=== PATIENT | female | born 1980 | race Caucasian/White ===

== ENCOUNTER 2017-01-10 16:18 | Emergency (ER) | payer OTHER ==
[~2017-01-10] VITALS: Ht 167.6 cm; Wt 69.4 kg
[2017-01-10] MEDS ORDERED: KETOROLAC 30 MG/ML VIAL. IV ONE (17:15)
[2017-01-10] MEDS ORDERED: ASPIRIN 81 MG TAB.CHEW PO ONE (17:15)
[2017-01-10] MEDS ORDERED: LIDO:MAALOX 1:1 20 ML SINGLE DOSE PO ONE (17:15)
--- NOTE | 2017-01-10 17:24 | EKG ---
[address] [address] Test Date: 2017-01-10 Test Time: 16:31:02 Pat Name: MC JAMISON Department: Room: Gender: F Injection Molding Technician: : 1980 Requested By: ERIC GREEN Order Number: [id number] Reading MD: Measurements Intervals [place] Rate: 80 P: 60 VT: 138 QRS: 86 QRSD: 94 T: 34 QT: 366 QTc: 426 Interpretive Statements SINUS RHYTHM NO SPECIFIC ECG ABNORMALITIES RI6.01 No previous ECG available for comparison
--- NOTE | 2017-01-10 17:35 | RAD ---
Portable AP upright view CXR: Clinical indications: Epigastric pain and chest pain for several hours.. Findings: No acute lung infiltrate or pleural effusion or pulmonary edema or lung mass or pneumothorax is seen. The heart size, pulmonary vasculature, mediastinum and both paul are unremarkable. Impression: No acute radiographic abnormality is seen.
[2017-01-10 17:51] LABS: BASO % 1 % (0-3); EOS # 0.2 x10^3/uL (0.0-0.7); EOS % 6 % (0-3); HEMATOCRIT 41.1 % (36.0-47.0); HEMOGLOBIN 13.9 g/dL (12.0-15.5); LYMPH # 1.4 x10^3/uL (1.0-4.8); LYMPH % 36 % (24-48); MEAN CORPUSCULAR HEMOGLOBIN 29 pg (25-35); MEAN CORPUSCULAR HGB CONC 34 g/dL (31-37); MEAN CORPUSCULAR VOLUME 87 fL (79-100); MONO # 0.4 x10^3/uL (0.0-1.1); MONO % 10 % (0-9); NEUT # 1.9 x10^3uL (1.8-7.7); NEUT % 48 % (31-73); PLATELET COUNT 232 x10^3/uL (140-400); RED BLOOD COUNT 4.75 x10^6/uL (3.50-5.40); RED CELL DISTRIBUTION WIDTH 13.9 % (11.5-14.5)
[2017-01-10 18:04] LABS: ALBUMIN 3.9 g/dL (3.4-5.0); ALBUMIN/GLOBULIN RATIO 1.2 (1.0-1.7); CALCIUM 8.8 mg/dL (8.5-10.1); CREATININE 0.7 mg/dL (0.6-1.0); GFR 94.7; POTASSIUM 3.5 mmol/L (3.5-5.1); TOTAL BILIRUBIN 0.3 mg/dL (0.2-1.0); TOTAL PROTEIN 7.2 g/dL (6.4-8.2)
[2017-01-10 18:48] VITALS: BP 102/78
[2017-01-10] MEDS ORDERED: HYDR-971 PO (19:02)
[2017-01-10] MEDS ORDERED: PRED20TA PO (19:02)
[2017-01-10] MEDS ORDERED: ONDANSETRON PF 4 MG/2 ML VIAL. ONE (19:03)
--- NOTE | 2017-01-10 19:06 | PHYS DOC ---
General Chief Complaint: CHEST PAIN Stated Complaint: CHEST PAIN Time Seen by MD: 17:02 Source: patient Exam Limitations: no limitations Problems: History of Present Illness Initial Comments Patient is a 36-year-old female who comes to the ED complaining of anterior chest wall discomfort. Patient states that she first noticed this at 10 PM last night, she complains of anterior chest wall aching with sharp stabbing the exacerbations when taking deep breaths, directly palpating her anterior chest wall, coughing, and other specific postural movements. Symptoms have remained stable since onset no worsening today, she denies associated nausea or diaphoresis dyspnea or arm or neck symptoms. Patient has rheumatoid arthritis she denies any symptoms of rheumatoid exacerbation elsewhere. She denies any strenuous activity or new workouts no dyspnea on exertion and coughing or wheezing, no fever chills sweats or body aches. Her current medications are not helping she typically follows at [place]. ED vitals: 98, 75, 16, 113/76, 100% room air Timing/Duration: intermittent (since 10 PM last night) Severity: moderate Modifying Factors: worse with movement, improves with rest Associated Symptoms: chest pain Allergies: Coded Allergies: No Known Drug Allergies (Unverified , 01/10/17) Past Medical History Medical History: other (rheumatoid arthritis) Surgical History: no surgical history Social History Smoker: non-smoker Alcohol: none Drugs: none Review of Systems Constitutional: denies chills, denies diaphoresis, denies fever, denies malaise , denies weakness Respiratory: denies cough, denies shortness of breath, denies wheezing Cardiovascular: see HPI, denies edema, denies palpitations, denies syncope Gastrointestinal: denies abdominal pain, denies diarrhea, denies nausea, denies vomiting Genitourinary: denies dysuria, denies frequency, denies hematuria Musculoskeletal: see HPI, denies back pain, denies neck pain Psychiatric/Neurological: denies headache, denies numbness, denies paresthesia , denies weakness Hematologic/Lymphatic: denies blood clots, denies easy bleeding, denies easy bruising Physical Exam General Appearance: WD/WN, no apparent distress Eyes: bilateral eye normal inspection, bilateral eye PERRL, bilateral eye EOMI Ear, Nose, Throat: hearing grossly normal, normal ENT inspection, normal pharynx Neck: non-tender, supple Respiratory: normal breath sounds, no respiratory distress, other (palpation of the anterior chest wall reproduces chief complaint) Cardiovascular: normal peripheral pulses, regular rate, rhythm Gastrointestinal: normal bowel sounds, non tender, soft Back: no CVA tenderness, no vertebral tenderness Extremities: normal range of motion, non-tender, normal inspection, no pedal edema, no calf tenderness, pelvis stable Neurologic/Psychiatric: nurse quality II-XII nml as tested, no motor/sensory deficits, alert, normal mood/affect, oriented x 3 Skin: normal color, warm/dry Orders, Labs, Meds EKG: Normal sinus rhythm 80 bpm, no acute ischemic changes no STEMI. Interpreted by Dr. Green. PATIENT: MC JAMISON ACCOUNT: [id number] : 1980 LOCATION: ER AGE: 36 SEX: F EXAM STATUS: REG ER ORD. PHYSICIAN: ERIC GREEN DO REASON: cp PROCEDURE: PORTABLE CHEST 1V Portable AP upright view CXR: Clinical indications: Epigastric pain and chest pain for several hours.. Findings: No acute lung infiltrate or pleural effusion or pulmonary edema or lung mass or pneumothorax is seen. The heart size, pulmonary vasculature, mediastinum and both paul are unremarkable. Impression: No acute radiographic abnormality is seen. DICTATED AND SIGNED BY: JORY HERNANDEZ MD DATE: 01/10/171731 CC: JAMARI LINDSAY; ERIC GREEN DO ~ Labs unremarkable Toradol and GI cocktail without effect on patient's symptoms. Given the duration of symptoms acute coronary syndrome has been effectively ruled out. No diffuse ST elevation and no physical exam findings to suggest further evaluation for pericarditis. Symptoms appear to be musculoskeletal in origin may or may not be related to patient's chronic rheumatoid disease. I discussed treatment options, patient is requesting pain medications. In addition she is requesting a work note. I discussed signs and symptoms to monitor for as well as indications for urgent return to the department. I discussed continuing current medications, [id number] medications as well as prescription medications. The patient and her spouse is questions were answered to their satisfaction they expressed agreement and understanding with the treatment plan and agree to follow-up at [place] tomorrow for recheck and further testing/outpatient workup as necessary. No emergent condition requiring further ED evaluation or inpatient treatment is evident from today's visit. Departure Time of Disposition: 19:04 Disposition: 01 HOME, SELF-CARE Diagnosis: chest wall pain, history of rheumatoid arthritis Condition: STABLE Patient Instructions: Chest Wall Pain, [id number] Additional Instructions: Off work until cleared by your doctor, note given. Continue current medications. Prescriptions: Prednisone, [place] 5 mg quantity 10 Take medications with food to avoid nausea and vomiting. Follow-up at [place] tomorrow for recheck and further outpatient workup as indicated. Return to the ED with new or changing symptoms. ERIC GREEN DO Jan 10, 2017 19:05
[2017-01-10] MEDS ORDERED: ONDANSETRON PF 4 MG/2 ML VIAL. IV ONE (19:30)
== END 2017-01-10 19:13 | disposition home or self-care (01) ==
LOC: ER 16:18
DX: R07.89 Other chest pain (principal); M06.9 Rheumatoid arthritis, unspecified
CPT/HCPCS: 36415; 71010; 80053; 81025; 82550; 83690; 84484; 85025; 85379; 93005; 96374; 96375; 99285; J1885; J2405

== ENCOUNTER 2019-11-04 11:52 | Emergency (ER) | payer OTHER ==
[~2019-11-04] VITALS: Ht 167.6 cm; Wt 60.9 kg
[~2019-11-04 11:52] MED LIST: HYDR-3165 PO; PRED20TA PO
[2019-11-04 12:10] VITALS: BP 124/79
[2019-11-04] MEDS ORDERED: SULF1TAB24 PO (12:11)
--- NOTE | 2019-11-04 12:18 | PHYS DOC ---
Past History Past Medical History: Arthritis Past Surgical History: No Surgical History Alcohol Use: None Drug Use: None Adult General Chief Complaint Chief Complaint: LOWER EXT PAIN HPI HPI Patient is a 39-year-old female who presents with left foot problem. Patient reports first noticing abscess on left foot 4 days ago. Nothing known makes better, ambulation and palpation make worse. Patient has history of skin abscesses in the past, no MRSA, but reports presenting symptoms similar to prior episodes. Patient takes Celebrex daily for rheumatoid arthritis, reports this is provided mild relief at best for symptoms. She has been afebrile but concerned given that she is on numerous immunosuppressive medication such as Humira and Plaquenil. Patient called her primary care office but cannot be seen until later this week prompting her to visit our ER today for evaluation. Patient denies any fever, shortness of breath, chest pain, changes in motor or sensory function, no focal deficits reported. She denies any known inciting event, inoculation, or trauma Review of Systems Review of Systems Fourteen body systems of review of systems have been reviewed. See HPI for pertinent positives and negative responses, other macario all other systems are negative, non-pertinent or non-contributory Allergies Allergies Allergies Coded Allergies Type Severity Reaction Last Updated Verified No Known Drug Allergies 01/10/17 No Physical Exam Physical Exam Constitutional: Well developed, well nourished, no acute distress, non-toxic appearance. HENT: Normocephalic, atraumatic, bilateral external ears normal, oropharynx moist, no oral exudates, nose normal. Eyes: PERRLA, EOMI, conjunctiva normal, no discharge. Neck: Normal range of motion, no tenderness, supple, no stridor. Cardiovascular: Heart rate regular, sinus rhythm, no murmurs rubs or gallops Lungs & Thorax: Bilateral breath sounds clear to auscultation Abdomen: Bowel sounds normal, soft, no tenderness, no masses, no pulsatile masses. Nonsurgical abdomen, no peritoneal signs Skin: Warm, dry, no rash. Medial portion of the left arch of foot has noticeable erythema with slightly erythematous area roughly 3.5 cm diameter with small up focal pustular head. Exquisitely tender to palpation. No expressible exudate, no fluctuant mass appreciated, no crepitus, no streaking Back: No tenderness, no CVA tenderness. Extremities: No tenderness, no cyanosis, no clubbing, ROM intact, no edema. Neurologic: Alert and oriented X 3, grossly normal motor & sensory function, no focal deficits noted. Psychologic: Affect normal, judgement normal, mood normal. EKG EKG [] Radiology/Procedures Radiology/Procedures [] Course & Med Decision Making Course & Med Decision Making Ambulatory patient seen and evaluated on immediate ER arrival ABCs unremarkable Comprehensive history and physical exam obtained Discussed grossly benign findings without any indication for further diagnostic work-up. Despite this, patient who although is afebrile, is high risk for worsened infection given immunocompromised state Discussed need for aggressive medical management early given clinical presentation, discussed role of antibiotics and continued supportive care using warm soaks etc. Decision made to discharge home with p.o. Bactrim prescription with close PCP follow-up in upcoming 1 to 10 days time Strict return precautions discussed with good understanding by patient, all questions and concerns addressed prior to ER departure home in stable condition Dragbeena Disclaimer Ayanna Disclaimer This electronic medical record was generated, in whole or in part, using a voice recognition dictation system. Departure Departure: Impression: Primary Impression: Abscess of left foot Disposition: 01 HOME/RESIDENCE PRIOR TO ADM Condition: STABLE Referrals: JAMARI LINDSAY (PCP) Patient Instructions: Abscess, Sulfamethoxazole; Trimethoprim, SMX-TMP tablets Additional Instructions: You were evaluated in the Emergency Department for an abscess. You should soak the area in warm water for 20-30 minutes 3-4 times daily. Contact your doctor when the abscess comes to a head (looks like it is almost ready to pop open) and needs to be drained. Please keep the areas surrounding the abscess clean and dry. Take the antibiotics prescribed to you in full as directed. As discussed prior to ER departure, please call your PCP first thing tomorrow to have visit in upcoming 1 to 10 days time for follow-up Return to the Emergency Department if you experience worsening pain, persistent fevers greater than 100.4, an increase in area of redness, increased tenderness/ warmth around the abscess, foul smelling discharge from the abscess It was a pleasure to take care of you and I wish you a speedy recovery! Scripts Sulfamethoxazole/Trimethoprim (BACTRIM DS TABLET) 1 Each Tablet 1 TAB PO BID for Abscess for 7 Days, #14 TAB 0 Refills Prov: LILLIE MOFFETT DO 11/04/19 Justification of Admission: Justification of Admission: Justification of Admission Dx: N/A LILLIE MOFFETT DO Nov 04, 2019 12:18
== END 2019-11-04 12:32 | disposition home or self-care (01) ==
LOC: ER 11:52
DX: L02.612 Cutaneous abscess of left foot (principal); M06.9 Rheumatoid arthritis, unspecified; Z79.899 Other long term (current) drug therapy
CPT/HCPCS: 99283

== ENCOUNTER 2020-10-27 12:10 | Emergency (ER) | payer OTHER ==
[~2020-10-27] VITALS: Ht 170.2 cm; Wt 61.9 kg
[~2020-10-27 12:10] MED LIST changes: +SULF1TAB24 PO
--- NOTE | 2020-10-27 12:25 | PHYS DOC ---
Past History Past Medical History: Arthritis, Other Additional Past Medical Histor: RA, eczema Past Surgical History: Hysterectomy Alcohol Use: None Drug Use: None Adult General Chief Complaint Chief Complaint: CHEST PAIN HPI HPI Patient is a 40-year-old female presenting for chest pain. Reports onset was ye sterday evening while lifting boxes. Nothing known makes better, physical exertion and inhalation make worse. Pain described as deep and focal over the left breast with radiation to behind her shoulder blades. She has never felt this type of pain before. Symptoms have been constant since onset. She has history of rheumatoid arthritis and on immunosuppressant drugs. No recent sick contacts, fever or URI symptoms, she has received x2 Moderna vaccines. No tobacco, alcohol or drug use. No significant past medical history of cardiac issues. Review of Systems Review of Systems Fourteen body systems of review of systems have been reviewed. See HPI for pertinent positives and negative responses, other macario all other systems are negative, non-pertinent or non-contributory Allergies Allergies Allergies Coded Allergies Type Severity Reaction Last Updated Verified No Known Drug Allergies 01/10/17 No Physical Exam Physical Exam Constitutional: Well developed, well nourished, no acute distress, non-toxic appearance. HENT: Normocephalic, atraumatic, bilateral external ears normal, oropharynx moist, no oral exudates, nose normal. Eyes: PERRLA, EOMI, conjunctiva normal, no discharge. Neck: Normal range of motion, no tenderness, supple, no stridor. Cardiovascular: Heart rate regular, sinus rhythm, no murmurs rubs or gallops Lungs & Thorax: No respiratory distress accessory muscle use or increased work of breathing. Patient is speaking in several word sentences only due to pain with inspiration. Clear to auscultation bilaterally Abdomen: Bowel sounds normal, soft, no tenderness, no masses, no pulsatile masses. Nonsurgical abdomen, no peritoneal signs Skin: Warm, dry, no erythema, no rash. Has a minute bite present on anterior abdomen from tick several weeks ago, no erythema migrans or bull's-eye sign, states tick was not engorged when it ripped off, estimates it was on her for less than a couple hours Back: No tenderness, no CVA tenderness. Extremities: No tenderness, no cyanosis, no clubbing, ROM intact, no edema. Neurologic: Alert and oriented X 3, grossly normal motor & sensory function, no focal deficits noted. Psychologic: Anxious affect and mood Current Patient Data Vital Signs Vital Signs Date Time Temp Pulse Resp B/P (MAP) Pulse Ox O2 Delivery O2 Flow Rate FiO2 10/27/20 12:10 97.8 86 18 127/85 98 Room Air Vital Signs Date Time Temp Pulse Resp B/P (MAP) Pulse Ox O2 Delivery O2 Flow Rate FiO2 10/27/20 12:10 97.8 86 18 127/85 98 Room Air Lab Results Laboratory Tests Test 10/27/20 12:33 White Blood Count 3.5 x10^3/uL Red Blood Count 4.89 x10^6/uL Hemoglobin 15.2 g/dL Hematocrit 44.8 % Mean Corpuscular Volume 92 fL Mean Corpuscular Hemoglobin 31 pg Mean Corpuscular Hemoglobin Concent 34 g/dL Red Cell Distribution Width 12.9 % Platelet Count 224 x10^3/uL Neutrophils (%) (Auto) 41 % Lymphocytes (%) (Auto) 34 % Monocytes (%) (Auto) 13 % Eosinophils (%) (Auto) 12 % Basophils (%) (Auto) 1 % Neutrophils # (Auto) 1.4 x10^3uL Lymphocytes # (Auto) 1.2 x10^3/uL Monocytes # (Auto) 0.4 x10^3/uL Eosinophils # (Auto) 0.4 x10^3/uL Basophils # (Auto) 0.0 x10^3/uL Sodium Level 143 mmol/L Potassium Level 3.4 mmol/L Chloride Level 105 mmol/L Carbon Dioxide Level 28 mmol/L Anion Gap 10 Blood Urea Nitrogen 9 mg/dL Creatinine 0.8 mg/dL Estimated GFR (Cockcroft-Gault) 79.4 BUN/Creatinine Ratio 11 Glucose Level 85 mg/dL Calcium Level 9.3 mg/dL Total Bilirubin 0.5 mg/dL Aspartate Amino Transf (AST/SGOT) 20 U/L Alanine Aminotransferase (ALT/SGPT) 26 U/L Alkaline Phosphatase 62 U/L Troponin I Quantitative < 0.017 ng/mL YQ-Csw-T-Type Natriuretic Peptide 26 pg/mL Total Protein 8.0 g/dL Albumin 4.4 g/dL Albumin/Globulin Ratio 1.2 Lipase 133 U/L Serum Test, Qualitative Negative Current Medications Medications (Trade) Dose Ordered Sig/Greer Route PRN Reason Start Time Stop Time Status Last Admin Dose Admin Aspirin (Aspirin Chewable) 324 mg 1X ONCE PO 10/27/20 12:45 10/27/20 12:46 DC 10/27/20 14:00 Iohexol (Omnipaque 350 Mg/ml) 100 ml 1X ONCE IV 10/27/20 13:00 10/27/20 13:01 DC 10/27/20 13:21 Info (Do NOT chart on this entry -- for MONITORING) 1 each PRN DAILY PRN MC SEE COMMENTS 10/27/20 13:00 10/29/20 12:59 EKG EKG EKG ordered and interpreted by myself at 1225 hrs. is sinus rhythm at 99 bpm, unremarkable intervals, no axis deviation, no obvious ischemic findings, no STEMI Radiology/Procedures Radiology/Procedures EXAMINATION: CTA Chest With IV contrast INDICATION:40 years, Female, shortness of breath, midline chest pain right dated into the back. COMPARISON: None. TECHNIQUE: Spiral CTA was obtained from the jugular notch through the posterior costophrenic recess. 3-D MIPS, sagittal and coronal reformats were obtained. Exposure: One or more of the following individualized dose reduction techniques were utilized for this examination: 1. Automated exposure control 2. Adjustment of the mA and/or kV according to patient size 3. Use of iterative reconstruction technique. FINDINGS: LUNGS/PLEURA: Central airways are patent. Bibasilar subsegmental atelectasis. No focal consolidation, pleural effusion or pneumothorax. No suspicious pulmonary nodule.. MEDIASTINUM: No pathologic mediastinal or hilar adenopathy. The thoracic aorta and pulmonary arteries are normal in caliber. No evidence of pulmonary embolism. Aberrant right subclavian artery. The heart is normal in size. No pericardial effusion. No detectable calcified coronary atherosclerosis. The visualized thyroid and the esophagus are unremarkable. AXILLA/SOFT TISSUE: No supraclavicular or axillary adenopathy. Regional soft tissues are within normal limits. UPPER ABDOMEN: The visualized upper abdomen appears unremarkable. BONES: No evidence of acute fractures or aggressive osseous lesions. IMPRESSION: 1. No evidence of pulmonary embolism. 2. No focal consolidation. Electronically signed by: Ronak Small MD (10/27/2020 1:45 PM) [facility] Heart Score C/O Chest Pain: Yes HEART Score for Chest Pain: HEART Score for Chest Pain Response (Comments) Value History Moderately Suspicious 1 ECG Normal 0 Age < 45 0 Risk Factors 1 or 2 Risk Factors 1 Troponin < Normal Limit 0 Total 2 Risk Factors: Risk Factors: DM, Current or recent (<one month) smoker, HTN, HLP, family history of CAD, obesity. Risk Scores: Risk Factors: DM, Current or recent (<one month) smoker, HTN, HLP, family history of CAD, obesity. Course & Med Decision Making Course & Med Decision Making ABCs unremarkable. I disclosed entirety of ER findings and discussed most likely diagnosis of likely noncardiac chest pain, I discussed most likely diagnosis is pectoral/chest wall musculoskeletal strain. Other diagnoses were discussed with patient such as ACS, blood clots etc. but all deemed less likely causes of patient's presentation. Plan of care discussed at length with need for close outpatient follow-up to review today's ER visit stressed. Strict return precautions were also discussed at length with good understanding by patient. Patient voiced understanding and agreement with the plan. Patient knows to come back for repeat evaluation if concerning signs or symptoms present prior to outpatient follow-up. Hemodynamically stable, ambulatory and well-appearing at time of disposition. Dragon Disclaimer Dragon Disclaimer This electronic medical record was generated, in whole or in part, using a voice recognition dictation system. Departure Departure: Impression: Primary Impression: Chest pain, unspecified Disposition: HOME / SELF CARE / HOMELESS Condition: STABLE Referrals: JAMARI LINDSAY (PCP) Patient Instructions: Chest Pain (Nonspecific) Additional Instructions: You were seen for chest pain. Your workup did not show any acute abnormalities today, but does not indicate that you do not have underlying cardiovascular disease or other concerning issues. You do need to follow up with your primary doctor and potentially a superintendent electric power for further evaluation and treatment. Please continue supportive care practices at home such as using prescribed NSAID 3 times daily with food in addition to a heating pad. You should return to the ED if you develop worsening chest pain, shortness of breath, fever, abnormal sweating, leg swelling, or any other new or concerning symptoms. Scripts Ibuprofen (IBUPROFEN) 800 Mg Tablet 1 TAB PO TID for PAIN, #15 TAB 0 Refills Prov: LILLIE MOFFETT DO 10/27/20 LILLIE MOFFETT DO Oct 27, 2020 12:25
--- NOTE | 2020-10-27 12:29 | EKG ---
[address] [address] Test Date: 2020-10-27 Test Time: 12:19:29 Pat Name: MC JAMISON Department: Room: Gender: F Biomedical Equipment Tech: DEMETRIA : 1980 Requested By: LILLIE MOFFETT Order Number: [id number] Reading MD: Measurements Intervals [place] Rate: 99 P: 63 [place]: 124 QRS: 80 QRSD: 84 T: 36 QT: 334 QTc: 434 Interpretive Statements SINUS RHYTHM LEFT ATRIAL ABNORMALITY ABNORMAL ECG RI6.02 No previous ECG available for comparison
[2020-10-27] MEDS ORDERED: ASPIRIN CHEWABLE 81 MG TABLET. PO ONE (12:45)
[2020-10-27 12:49] LABS: BASO % 1 % (0-3); EOS # 0.4 x10^3/uL (0.0-0.7); EOS % 12 % (0-3); HEMATOCRIT 44.8 % (36.0-47.0); HEMOGLOBIN 15.2 g/dL (12.0-15.5); LYMPH # 1.2 x10^3/uL (1.0-4.8); LYMPH % 34 % (24-48); MEAN CORPUSCULAR HEMOGLOBIN 31 pg (25-35); MEAN CORPUSCULAR HGB CONC 34 g/dL (31-37); MEAN CORPUSCULAR VOLUME 92 fL (79-100); MONO # 0.4 x10^3/uL (0.0-1.1); MONO % 13 % (0-9); NEUT # 1.4 x10^3uL (1.8-7.7); NEUT % 41 % (31-73); PLATELET COUNT 224 x10^3/uL (140-400); RED BLOOD COUNT 4.89 x10^6/uL (3.50-5.40); RED CELL DISTRIBUTION WIDTH 12.9 % (11.5-14.5); WHITE BLOOD COUNT 3.5 x10^3/uL (4.0-11.0)
[2020-10-27 12:58] LABS: CALCIUM 9.3 mg/dL (8.5-10.1); CREATININE 0.8 mg/dL (0.6-1.0); GFR 79.4; POTASSIUM 3.4 mmol/L (3.5-5.1)
[2020-10-27] MEDS ORDERED: IOHEXOL 350 MG/ML 100 ML VIAL. IV ONE (13:00)
[2020-10-27] MEDS ORDERED: CONTRAST GIVEN. MC PRN (13:00)
[2020-10-27 13:04] LABS: PREG TEST PT QUAL NEGATIVE (NEG)
[2020-10-27 13:11] LABS: ALBUMIN 4.4 g/dL (3.4-5.0); ALBUMIN/GLOBULIN RATIO 1.2 (1.0-1.7); TOTAL BILIRUBIN 0.5 mg/dL (0.2-1.0)
--- NOTE | 2020-10-27 13:48 | RAD ---
EXAMINATION: CTA Chest With IV contrast INDICATION:40 years, Female, shortness of breath, midline chest pain right dated into the back. COMPARISON: None. TECHNIQUE: Spiral CTA was obtained from the jugular notch through the posterior costophrenic recess. 3-D MIPS, sagittal and coronal reformats were obtained. Exposure: One or more of the following individualized dose reduction techniques were utilized for thi s examination: 1. Automated exposure control 2. Adjustment of the mA and/or kV according to patient size 3. Use of iterative reconstruction technique. FINDINGS: LUNGS/PLEURA: Central airways are patent. Bibasilar subsegmental atelectasis. No focal consolidation, pleural effusion or pneumothorax. No suspicious pulmonary nodule.. MEDIASTINUM: No pathologic mediastinal or hilar adenopathy. The thoracic aorta and pulmonary arteries are normal in caliber. No evidence of pulmonary embolism. Aberrant right subclavian artery. The hear t is normal in size. No pericardial effusion. No detectable calcified coronary atherosclerosis. The v isualized thyroid and the esophagus are unremarkable. AXILLA/SOFT TISSUE: No supraclavicular or axillary adenopathy. Regional soft tissues are within pankaj l limits. UPPER ABDOMEN: The visualized upper abdomen appears unremarkable. BONES: No evidence of acute fractures or aggressive osseous lesions. IMPRESSION: 1. No evidence of pulmonary embolism. 2. No focal consolidation. Electronically signed by: Ronak Small MD (10/27/2020 1:45 PM) [facility]
[2020-10-27] MEDS ORDERED: IBUP800T19 PO (14:38)
[2020-10-27] MEDS ORDERED: KETOROLAC 15 MG/ML VIAL. IVP ONE (14:45)
[2020-10-27 14:55] VITALS: BP 111/77
== END 2020-10-27 14:53 | disposition home or self-care (01) ==
LOC: ER 12:10
DX: R07.89 Other chest pain (principal); Z32.02 Encounter for pregnancy test, result negative; Z90.710 Acquired absence of both cervix and uterus; Z20.822 Contact with and (suspected) exposure to COVID-19
CPT/HCPCS: 36415; 71275; 80053; 83690; 83880; 84484; 84703; 85025; 93005; 96374; 99285; C9803; J1885; Q9967; U0003

== ENCOUNTER 2020-12-10 09:27 | Emergency (ER) | payer OTHER ==
[~2020-12-10] VITALS: Ht 167.6 cm; Wt 63.6 kg
[~2020-12-10 09:27] MED LIST changes: +IBUP800T19 PO
[2020-12-10] MEDS ORDERED: ONDANSETRON PF 4 MG/2 ML VIAL. IVP ONE (10:00)
[2020-12-10] MEDS ORDERED: IV NORMAL SALINE 1,000ML 1,000 ML IV ONE (10:00)
[2020-12-10] MEDS ORDERED: MECLIZINE 12.5 MG TABLET. PO ONE (10:00)
--- NOTE | 2020-12-10 10:01 | PHYS DOC ---
Past History Past Medical History: Arthritis, Other Additional Past Medical Histor: RA Past Surgical History: No Surgical History Alcohol Use: None Drug Use: None General Adult EDM: Chief Complaint: DIZZY/LIGHT HEADED HPI: HPI: 40-year-old female presents with dizziness. The patient started having dizziness last night. She describes it as a feeling of rotation. She did not really get any sleep last night because she feels like she is spinning even with her eyes closed. She has some nausea but no vomiting. She denies any trauma or falls. No new changes to medications. She is on medications for rheumatoid arthritis. It does seem to be made worse with movements of her head. She has not had this in the past. She has had trouble for the last couple months feeling like she has ear congestion. She was treated for sinus infection twice by her PCP without relief. Review of Systems: Review of Systems: Constitutional: Denies fever or chills Eyes: Denies change in visual acuity HENT: Denies nasal congestion or sore throat Respiratory: Denies cough or shortness of breath Cardiovascular: Denies chest pain or edema GI: Nausea. Denies abdominal pain, vomiting, bloody stools or diarrhea : Denies dysuria Musculoskeletal: Denies back pain or joint pain Integument: Denies rash Neurologic: Dizziness. Denies headache, focal weakness or sensory changes Endocrine: Denies polyuria or polydipsia Lymphatic: Denies swollen glands Psychiatric: Denies depression or anxiety Current Medications: Current Meds: Current Medications Medications (Trade) Dose Ordered Sig/Greer Start Time Stop Time Status Last Admin Dose Admin Ondansetron HCl (Zofran) 4 mg 1X ONCE 12/10/20 10:00 12/10/20 10:01 Sodium Chloride 1,000 ml @ 1,000 mls/hr 1X ONCE 12/10/20 10:00 12/10/20 10:59 Allergies: Allergies: Allergies Coded Allergies Type Severity Reaction Last Updated Verified No Known Drug Allergies 10/27/20 No Physical Exam: PE: Constitutional: Well developed, well nourished, no acute distress, non-toxic appearance. [] HENT: Normocephalic, atraumatic, bilateral external ears normal, oropharynx moist, no oral exudates, nose normal. [] Eyes: PERRLA, EOMI, conjunctiva normal, no discharge. Very mild nystagmus with head movement.[] Neck: Normal range of motion, no tenderness, supple, no stridor. [] Cardiovascular: Heart rate regular rhythm, no murmur [] Lungs & Thorax: Bilateral breath sounds clear to auscultation [] Abdomen: Bowel sounds normal, soft, no tenderness, no masses, no pulsatile masses. [] Skin: Warm, dry, no erythema, no rash. [] Back: No tenderness, no CVA tenderness. [] Extremities: No tenderness, no cyanosis, no clubbing, ROM intact, no edema. [] Neurologic: Alert and oriented X 3, normal motor function, normal sensory function, no focal deficits noted. [] Psychologic: Affect normal, judgement normal, mood normal. [] EKG: EKG: [] Radiology/Procedures: Radiology/Procedures: [] Impressions: CT HEAD/BRAIN WO Date: 12/10/2020 11:10 AM Clinical Indication: dizziness Comparison: None. Technique: 5 mm axial tomographic images were obtained of the head without contrast. These were viewed on brain and bone windows. One or more of the following dose reduction techniques were utilized: Automated exposure control (AEC), Adjustment of mA and/or kV according to patient size, Use of iterative reconstruction technique such as ASiR, CT scan done according to ALARA and image gently/image wisely Findings: The brain parenchyma is normal in attenuation. No intra- or extra-axial mass or fluid collection. No acute hemorrhage. The ventricles are normal in size, shape, and morphology. The aguilar-white matter junction is normal. The subarachnoid cisterns are patent. The visualized paranasal sinuses are normal. The visualized portions of the orbits and globes are normal. The mastoid air cells are clear. The banquet bartender topogram shows no lytic lesion or fracture. Impression: No acute intracranial process. Electronically signed by: David Huang MD (12/10/2020 11:19 AM) [id number] DICTATED AND SIGNED BY: DAVID HUANG MD DATE: 12/10/20 1118 CC: BASIA SÁNCHEZ DO; JAMARI LINDSAY ~MTH0 0 Heart Score: C/O Chest Pain: N/A Risk Factors: Risk Factors: DM, Current or recent (<one month) smoker, HTN, HLP, family history of CAD, obesity. Risk Scores: Score 0 - 3: 2.5% MACE over next 6 weeks - Discharge Home Score 4 - 6: 20.3% MACE over next 6 weeks - Admit for Clinical Observation Score 7 - 10: 72.7% MACE over next 6 weeks - Early Invasive Strategies Course & Med Decision Making: Course & Med Decision Making Pertinent Labs and Imaging studies reviewed. (See chart for details) The patient's labs are unremarkable. Her urinalysis is negative for infection. Her urine drug screen is negative. I initially gave the patient Zofran, normal saline and meclizine. This helped with the nausea but she is still feeling dizzy. There is a head CT, of Reglan, and Benadryl. Head CT is negative for acute findings. The patient continues to have feeling of dizziness but she was able to ambulate to the restroom and back on her own. This is likely an inner ear dysfunction that will resolve in time. The patient would prefer to go home and try to manage this from there rather than be admitted to the hospital. I will discharge her with Zofran and meclizine. She is stable for discharge at this time. [] Dragon Disclaimer: Dragon Disclaimer: This electronic medical record was generated, in whole or in part, using a voice recognition dictation system. Departure Departure: Impression: Primary Impression: Dizziness Disposition: HOME / SELF CARE / HOMELESS Condition: STABLE Referrals: JAMARI LINDSAY (PCP) Patient Instructions: Dizziness, Mevd-xs-Aibv Scripts Meclizine Hcl (MECLIZINE HCL) 25 Mg Tablet 1 TAB PO PRN TID PRN for DIZZINESS, #30 TAB Prov: BASIA SÁNCHEZ DO 12/10/20 Ondansetron (ONDANSETRON ODT) 4 Mg Tab.rapdis 1 TAB PO PRN Q6-8HRS PRN for VOMITING, #16 TAB Prov: BASIA SÁNCHEZ DO 12/10/20 BASIA SÁNCHEZ DO Dec 10, 2020 10:01
[2020-12-10 10:36] LABS: BASO % 1 % (0-3); EOS # 0.3 x10^3/uL (0.0-0.7); EOS % 14 % (0-3); HEMOGLOBIN 14.6 g/dL (12.0-15.5); LYMPH # 0.9 x10^3/uL (1.0-4.8); LYMPH % 36 % (24-48); MEAN CORPUSCULAR HEMOGLOBIN 31 pg (25-35); MEAN CORPUSCULAR HGB CONC 34 g/dL (31-37); MEAN CORPUSCULAR VOLUME 91 fL (79-100); MONO # 0.3 x10^3/uL (0.0-1.1); MONO % 11 % (0-9); NEUT % 38 % (31-73); PLATELET COUNT 215 x10^3/uL (140-400); RED BLOOD COUNT 4.73 x10^6/uL (3.50-5.40); WHITE BLOOD COUNT 2.6 x10^3/uL (4.0-11.0)
[2020-12-10 10:41] LABS: CALCIUM 9.1 mg/dL (8.5-10.1); CREATININE 0.6 mg/dL (0.6-1.0); GFR 110.7; POTASSIUM 3.7 mmol/L (3.5-5.1)
[2020-12-10 10:47] LABS: ALBUMIN 3.8 g/dL (3.4-5.0); ALBUMIN/GLOBULIN RATIO 1.1 (1.0-1.7); TOTAL BILIRUBIN 0.5 mg/dL (0.2-1.0); TOTAL PROTEIN 7.2 g/dL (6.4-8.2)
[2020-12-10] MEDS ORDERED: diphenhydrAMINE 50 MG/ML VIAL IVP ONE (11:15)
[2020-12-10] MEDS ORDERED: METOCLOPRAMIDE HCL 10 MG/2 ML VIAL. IVP ONE (11:15)
--- NOTE | 2020-12-10 11:21 | RAD ---
CT HEAD/BRAIN WO Date: 12/10/2020 11:10 AM Clinical Indication: dizziness Comparison: None. Technique: 5 mm axial tomographic images were obtained of the head without contrast. These were view ed on brain and bone windows. One or more of the following dose reduction techniques were utilized: A utomated exposure control (AEC), Adjustment of mA and/or kV according to patient size, Use of iterati ve reconstruction technique such as ASiR, CT scan done according to ALARA and image gently/image macario ly Findings: The brain parenchyma is normal in attenuation. No intra- or extra-axial mass or fluid collection. No acute hemorrhage. The ventricles are normal in size, shape, and morphology. The aguilar-white matter ezra ction is normal. The subarachnoid cisterns are patent. The visualized paranasal sinuses are normal. The visualized portions of the orbits and globes are no rmal. The mastoid air cells are clear. The human services supervisor topogram shows no lytic lesion or fracture. Impression: No acute intracranial process. Electronically signed by: Antoni Huang MD (12/10/2020 11:19 AM) [id number]
[2020-12-10 12:37] LABS: BARBITURATES NEG (NEG); BENZODIAZEPINES NEG (NEG); CANNABINOIDS NEG (NEG); COCAINE NEG (NEG); METHADONE NEG (NEG); OPIATES NEG (NEG); PHENCYCLIDINE NEG (NEG)
[2020-12-10 12:44] LABS: AMPHETAMINE/METHAMPHETAMINE NEG (NEG)
[2020-12-10 13:07] LABS: BACTERIA,URINE 0 /HPF (0-FEW); BILIRUBIN,URINE NEG (NEG); CLARITY,URINE CLEAR; COLOR,URINE YELLOW; GLUCOSE,URINE NEG (NEG); NITRITE,URINE NEG (NEG); RBC,URINE 0 /HPF (0-2); SQUAMOUS EPITHELIAL CELL,UR FEW /LPF; UROBILINOGEN,URINE 0.2 mg/dL (0.2 mg/dL); WBC,URINE OCC /HPF (0-4)
[2020-12-10 13:20] VITALS: BP 110/72
[2020-12-10] MEDS ORDERED: ONDA4TAB12 PO (13:30)
[2020-12-10] MEDS ORDERED: MECL-75 PO (13:30)
== END 2020-12-10 14:00 | disposition home or self-care (01) ==
LOC: ER 09:27
DX: R42 Dizziness and giddiness (principal); R11.0 Nausea; M06.9 Rheumatoid arthritis, unspecified
CPT/HCPCS: 36415; 70450; 80053; 80307; 81001; 85025; 96361; 96374; 96375; J1200; J2405; J2765; 99284-25; 99285-25; J7030

== ENCOUNTER → 2021-02-05 | Outpatient (CLI) | payer OTHER ==
[~2021-02-05] MED LIST changes: +MECL-75 PO; +ONDA4TAB12 PO
== END ==
LOC: LAB 10:31
PROVIDERS: ATTEND Physician Assistant
DX: S30.861A Insect bite (nonvenomous) of abdominal wall, initial encounter (principal); W57.XXXA Bitten or stung by nonvenomous insect and other nonvenomous arthropods, initial encounter
CPT/HCPCS: 36415; 86617; 86618

== ENCOUNTER 2021-03-19 18:54 | Emergency (ER) | payer OTHER ==
[~2021-03-19] VITALS: Ht 167.6 cm; Wt 63.6 kg
[2021-03-19 19:15] VITALS: BP 117/79
--- NOTE | 2021-03-19 19:53 | PHYS DOC ---
Past History Past Medical History: Arthritis, Other Additional Past Medical Histor: RA (FAY CLAROS APRN) Past Surgical History: Hysterectomy (FAY CLAROS APRN) Smoking: Non-smoker Alcohol Use: Occasionally Drug Use: None (FAY CLAROS APRN) General Adult EDM: Chief Complaint: COUGH HPI: HPI: Patient is a 40-year-old female that presents today with body aches, difficulty breathing, and fever and chills, abdominal pain and nausea. Patient states that 2 days ago her daughter tested positive for COVID-19 and she has had direct exposure to her daughter, her symptoms started 24 hours ago and is progressively gotten worse. Patient does have a history of rheumatoid arthritis and is on immunosuppressant medications for that. Patient states she has had a lot of nausea and has vomited at least 5-6 times today she did state that she took Zofran around 5 PM today and that has not helped. Patient states she has had COVID-19 vaccines but has not had the booster. (FAY CLAROS X RAY TECHNOLOGIST) Review of Systems: Review of Systems: Constitutional: Denies fever or chills Eyes: Denies change in visual acuity HENT: Denies nasal congestion or sore throat Respiratory: Denies cough or shortness of breath Cardiovascular: Denies chest pain or edema GI: Denies abdominal pain, nausea, vomiting, bloody stools or diarrhea : Denies dysuria Musculoskeletal: Denies back pain or joint pain Integument: Denies rash Neurologic: Denies headache, focal weakness or sensory changes Endocrine: Denies polyuria or polydipsia Lymphatic: Denies swollen glands Psychiatric: Denies depression or anxiety (FAY CLAROS APRN) Allergies: Allergies: Allergies Coded Allergies Type Severity Reaction Last Updated Verified No Known Drug Allergies 10/27/20 No (FAY CLAROS APRN) Physical Exam: PE: Constitutional: Well developed, well nourished, mild distress, non-toxic appearance. [] HENT: Normocephalic, atraumatic, bilateral external ears normal, oropharynx moist, no oral exudates, nose normal. [] Eyes: PERRLA, EOMI, conjunctiva normal, no discharge. [] Neck: Normal range of motion, no tenderness, supple, no stridor. [] Cardiovascular:Heart rate regular rhythm, no murmur [] Lungs & Thorax: Bilateral breath sounds diminshed Abdomen: Bowel sounds hypoactive, soft, no tenderness, no masses, no pulsatile masses. [] Skin: Warm, dry, no erythema, no rash. [] Back: No tenderness, no CVA tenderness. [] Extremities: No tenderness, no cyanosis, no clubbing, ROM intact, no edema. [] Neurologic: Alert and oriented X 3, normal motor function, normal sensory function, no focal deficits noted. [] Psychologic: Affect normal, judgement normal, mood normal. [] (FAY CLAROS APRN) Current Patient Data: Labs: Laboratory Tests Test 03/19/21 20:40 03/19/21 20:45 Influenza Type A (Rapid) Negative Influenza Type B (Rapid) Positive SARS-CoV-2 Antigen (Rapid) Positive White Blood Count 2.2 x10^3/uL Red Blood Count 4.58 x10^6/uL Hemoglobin 14.1 g/dL Hematocrit 41.9 % Mean Corpuscular Volume 92 fL Mean Corpuscular Hemoglobin 31 pg Mean Corpuscular Hemoglobin Concent 34 g/dL Red Cell Distribution Width 12.8 % Platelet Count 171 x10^3/uL Neutrophils (%) (Auto) 28 % Lymphocytes (%) (Auto) 52 % Monocytes (%) (Auto) 16 % Eosinophils (%) (Auto) 3 % Basophils (%) (Auto) 1 % Neutrophils # (Auto) 0.6 x10^3uL Lymphocytes # (Auto) 1.1 x10^3/uL Monocytes # (Auto) 0.3 x10^3/uL Eosinophils # (Auto) 0.1 x10^3/uL Basophils # (Auto) 0.0 x10^3/uL Platelet Estimate Pending Sodium Level 137 mmol/L Potassium Level 3.3 mmol/L Chloride Level 101 mmol/L Carbon Dioxide Level 23 mmol/L Anion Gap 13 Blood Urea Nitrogen 16 mg/dL Creatinine 0.8 mg/dL Estimated GFR (Cockcroft-Gault) 79.4 BUN/Creatinine Ratio 20 Glucose Level 59 mg/dL Calcium Level 8.2 mg/dL Total Bilirubin 0.4 mg/dL Aspartate Amino Transf (AST/SGOT) 34 U/L Alanine Aminotransferase (ALT/SGPT) 36 U/L Alkaline Phosphatase 51 U/L Total Protein 7.0 g/dL Albumin 3.6 g/dL Albumin/Globulin Ratio 1.1 Current Medications Medications (Trade) Dose Ordered Sig/Greer Route PRN Reason Start Time Stop Time Status Last Admin Dose Admin Sodium Chloride 1,000 ml @ 1,000 mls/hr 1X ONCE IV 03/19/21 20:00 03/19/21 20:59 DC 03/19/21 20:45 Ketorolac Tromethamine (Toradol 30mg Vial) 30 mg 1X ONCE IVP 03/19/21 21:45 03/19/21 21:46 DC 03/19/21 21:46 Dexamethasone Sodium Phosphate (Decadron) 10 mg 1X ONCE IVP 03/19/21 21:45 03/19/21 21:46 DC 03/19/21 21:45 Ondansetron HCl (Zofran) 4 mg 1X ONCE IVP 03/19/21 21:45 03/19/21 21:46 DC 03/19/21 21:45 Vital Signs: Vital Signs Date Time Temp Pulse Resp B/P (MAP) Pulse Ox O2 Delivery O2 Flow Rate FiO2 03/19/21 19:15 98.1 91 22 117/79 (92) 100 Room Air (FAY CLAROS APRN) EKG: EKG: [] (FAY CLAROS X RAY TECHNOLOGIST) Radiology/Procedures: Radiology/Procedures: REASON: cough PROCEDURE: CHEST AP ONLY PA chest. HISTORY: Cough PA view was taken of the chest. Lungs are clear. Heart is normal in size. There is no effusion. IMPRESSION: 1. No acute infiltrates. Electronically signed by: Lobito Barroso MD (03/19/2021 7:58 PM) [facility] [] (FAY CLAROS X RAY TECHNOLOGIST) Heart Score: C/O Chest Pain: N/A Risk Factors: Risk Factors: DM, Current or recent (<one month) smoker, HTN, HLP, family history of CAD, obesity. Risk Scores: Score 0 - 3: 2.5% MACE over next 6 weeks - Discharge Home Score 4 - 6: 20.3% MACE over next 6 weeks - Admit for Clinical Observation Score 7 - 10: 72.7% MACE over next 6 weeks - Early Invasive Strategies (FAY CLAROS APRN) Course & Med Decision Making: Course & Med Decision Making Pertinent Labs and Imaging studies reviewed. (See chart for details) 2144 patient reassessment patient continues to have pain, patient informed of her COVID positive and her influenza positive status. We will give patient steroids, Toradol, and some Zofran for the nausea. Patient continues to get a liter of fluid. 2204: Checkout to Dr. Damon. (FAY CLAROS APRN) Ayanna Disclaimer: Ayanna Disclaimer: This electronic medical record was generated, in whole or in part, using a voice recognition dictation system. (FAY CLAROS APRN) Departure Departure: Impression: Primary Impression: COVID-19 Additional Impression: Influenza B Referrals: JAMARI LINDSAY (PCP) Patient Instructions: Influenza, Adult Additional Instructions: Call your binder cutter in the a.m. to inform them of your positive influenza and COVID-19 status. Return to the emergency department for increased shortness of air, inability to keep by mouth fluids down, and fever that is not relieved with Tylenol and/or ibuprofen. Tylenol and/or ibuprofen as needed for fever and pain. You have been tested for or diagnosed with COVID-19. It is an infection caused by a new type of coronavirus. COVID-19 will cause cold-like or mild flu symptoms in most. It can cause more severe symptoms like problems breathing in some. There is no treatment for COVID-19. The body will clear the infection over time. Self-care will help to ease discomfort. Steps to Take: Self-Care Rest as needed. Healthy habits may help you feel better. Steps include: Choose healthy foods including fruits and vegetables. Drink water throughout the day. Get plenty of sleep each night. If you smoke, try to quit. It may ease breathing. Avoid alcohol. Keep Others Healthy The virus can spread to others. Droplets are released every time you sneeze or cough. The droplets can get into the mouth, nose, or eyes of people near you and lead to infection. To lower the chances of spreading COVID-19 to others: Stay at home until your doctor has said it is safe to leave. If you tested positive this will mean staying isolated until both of the following are true: At least 10 days have passed since the start of illness. You are free of fever for at least 72 hours without the use of medicine. During this time: - Avoid public areas, events, or transportation. Do not return to work or school until your doctor has said it is safe to do so. - Call ahead if you need to go to a medical center. Let them know you may have COVID-19. It will help them guide you where to go. They may also ask you to wear a facemask when you come to the office. - If you call for emergency medical services, let them know you may have COVID- 19. While at home: - Try to avoid close contact with others. Stay about 6 feet away. - If possible, spend most of your time in a separate room from others. - Use a face mask if you will be in close contact with others such as sharing a room or vehicle. - Have someone wipe down common surfaces in the home. Use household automatic pinsetter adjuster every day on areas like doorknobs, counters, or sinks. - Cough or sneeze into a tissue. Throw the tissue away right after use. If a tissue is not available, cough or sneeze into your elbow. - Wash your hands often. Wash them after sneezing or coughing. Use soap and water and wash for at least 20 seconds. Alcohol based hand assembly cleaner can be used if soap and water is not available. - Do not prepare food for others. Avoid sharing personal items like forks, spoons, or toothbrushes. - Avoid close contact with pets while you are sick. There is no evidence of the virus passing to pets. This is a safety step until more is known about this virus. Isolation can be frustrating. Social interaction can help. Keep in touch with friends and family through phone and tech options. You can still interact with others in your home, just keep a safe distance of about 6 feet. Follow-up: Your doctors office will check in with you to see if there are any changes in your health. You may be asked to keep track of symptoms to share with them. They will also let you know when you are clear to be in public again. Problems to Look Out For: Contact your doctor if your recovery is not going as you expect. Get emergency care if you have problems such as: - Trouble breathing - Nonstop chest pain or pressure - Changes in awareness, confusion, or problems waking - Lips or face have bluish color - Worsening of symptoms If you think you have an emergency, call for emergency medical services right away. As taken from [facility] Ondansetron (ONDANSETRON ODT) 4 Mg Tab.rapdis 1 TAB PO PRN Q6-8HRS for nausea, #20 TAB Prov: FAY CLAROS X RAY TECHNOLOGIST 03/19/21 Dragon Disclaimer This chart was dictated in whole or in part using Voice Recognition software in a busy, high-work load, and often noisy Emergency Department environment. It may contain unintended and wholly unrecognized errors or omissions. (RODOLFO DAMON MD) Attending Signature Attending Signature I have participated in the care of this patient and I have reviewed and agree with all pertinent clinical information above including history, exam, and recommendations. (RODOLFO DAMON MD) FAY CLAROS X RAY TECHNOLOGIST Mar 19, 2021 19:53 RODOLFO DAMON MD Mar 20, 2021 09:00
[2021-03-19] MEDS ORDERED: IV NORMAL SALINE 1,000ML 1,000 ML IV ONE (20:00)
--- NOTE | 2021-03-19 20:00 | RAD ---
PA chest. HISTORY: Cough PA view was taken of the chest. Lungs are clear. Heart is normal in size. There is no effusion. IMPRESSION: 1. No acute infiltrates. Electronically signed by: Lobito Barroso MD (03/19/2021 7:58 PM) [facility]
[2021-03-19 21:12] LABS: BASO % 1 % (0-3); EOS # 0.1 x10^3/uL (0.0-0.7); EOS % 3 % (0-3); HEMATOCRIT 41.9 % (36.0-47.0); HEMOGLOBIN 14.1 g/dL (12.0-15.5); LYMPH # 1.1 x10^3/uL (1.0-4.8); LYMPH % 52 % (24-48); MEAN CORPUSCULAR HEMOGLOBIN 31 pg (25-35); MEAN CORPUSCULAR HGB CONC 34 g/dL (31-37); MEAN CORPUSCULAR VOLUME 92 fL (79-100); MONO # 0.3 x10^3/uL (0.0-1.1); MONO % 16 % (0-9); NEUT # 0.6 x10^3uL (1.8-7.7); NEUT % 28 % (31-73); PLATELET COUNT 171 x10^3/uL (140-400); RED BLOOD COUNT 4.58 x10^6/uL (3.50-5.40); RED CELL DISTRIBUTION WIDTH 12.8 % (11.5-14.5); WHITE BLOOD COUNT 2.2 x10^3/uL (4.0-11.0)
[2021-03-19 21:17] LABS: CALCIUM 8.2 mg/dL (8.5-10.1); CREATININE 0.8 mg/dL (0.6-1.0); GFR 79.4; POTASSIUM 3.3 mmol/L (3.5-5.1)
[2021-03-19 21:23] LABS: ALBUMIN 3.6 g/dL (3.4-5.0); ALBUMIN/GLOBULIN RATIO 1.1 (1.0-1.7); TOTAL BILIRUBIN 0.4 mg/dL (0.2-1.0)
[2021-03-19 21:26] LABS: INFLUENZA A PATIENT NEGATIVE (NEGATIVE)
[2021-03-19 21:28] LABS: INFLUENZA B PATIENT POSITIVE (NEGATIVE)
[2021-03-19] MEDS ORDERED: KETOROLAC 30 MG/ML VIAL. IVP ONE (21:45)
[2021-03-19] MEDS ORDERED: ONDANSETRON PF 4 MG/2 ML VIAL. IVP ONE (21:45)
[2021-03-19] MEDS ORDERED: DEXAMETHASONE SOD PHOS 10 MG/ML VIAL. IVP ONE (21:45)
[2021-03-19] MEDS ORDERED: ONDA4TAB12 PO (22:09)
[2021-03-19 22:15] LABS: % ATYL 2 % (0-0); % BANDS 1 % (0-9); % EOS 2 % (0-5); % LYMPHS 49 % (24-48); % MONOS 16 % (0-10); % SEGS 30 % (35-66); PLT ESTIMATE ADEQUATE (ADEQUATE)
[2021-03-19] MEDS ORDERED: oxyCODONE/APAP 5/325 1 TAB TABLET PO ONE (23:45)
== END 2021-03-19 23:35 | disposition home or self-care (01) ==
LOC: ER 18:54
DX: U07.1 COVID-19 (principal); J10.1 Influenza due to other identified influenza virus with other respiratory manifestations; M06.9 Rheumatoid arthritis, unspecified
CPT/HCPCS: 36415; 71045; 80053; 85007; 85025; 87428; 96361; 96374; 96375; 99284; J1100; J1885; J2405; J7030

== ENCOUNTER 2021-05-04 07:53 | Emergency (ER) | payer OTHER ==
[~2021-05-04] VITALS: Ht 167.6 cm; Wt 66.0 kg
[2021-05-04 07:55] VITALS: BP 103/71
--- NOTE | 2021-05-04 08:40 | PHYS DOC ---
Past History Past Medical History: Arthritis, Other Additional Past Medical Histor: RA Past Surgical History: Hysterectomy Smoking: Non-smoker Alcohol Use: Rarely Drug Use: None General Adult EDM: Chief Complaint: HAND PROBLEM HPI: HPI: Patient is a 40-year-old female sent down from urgent care for right arm pain. Patient states that she woke up she had pain in her forearm, wrist and burning sensation in her second through fifth fingers. Patient states that later if she is getting ready her fingers felt cold, currently she feels like they are burning. She denies any injury but states that she had been moving heavy objects such as furniture yesterday. She is right-handed. Patient has a history of RA. Review of Systems: Review of Systems: All other systems within normal limits except for as noted in the HPI Allergies: Allergies: Allergies Coded Allergies Type Severity Reaction Last Updated Verified No Known Drug Allergies 10/27/20 No Physical Exam: PE: Constitutional: Well developed, well nourished, no acute distress, non-toxic ap pearance. [] HENT: Normocephalic, atraumatic, bilateral external ears normal, nose normal. [] Eyes: PERRLA, conjunctiva normal, no discharge. [] Neck: No rigidity, supple, no stridor. [] Cardiovascular: Regular rate and rhythm, brisk cap refill [] Lungs & Thorax: Non labored symmetric respirations, no tachypnea or respiratory distress [] Abdomen: Soft, nondistended. Skin: Warm, dry, no erythema, no rash. [] Back: Unremarkable Extremities: No deformities, range of motion grossly intact, no lower extremity edema. Right arm: Tenderness over volar forearm and wrist, slight swelling of right wrist. Brisk cap refill, strong ulnar and radial pulses. Range of motion intact but painful [] Neurologic: Alert and oriented X 3, no focal deficits noted. [] Psychologic: Affect normal, judgement normal, mood normal. [] Current Patient Data: Vital Signs: Vital Signs Date Time Temp Pulse Resp B/P (MAP) Pulse Ox O2 Delivery O2 Flow Rate FiO2 05/04/21 07:55 97.5 82 16 103/71 (82) 100 EKG: EKG: [] Radiology/Procedures: Radiology/Procedures: [address] [address] IMAGING REPORT Signed PATIENT: MC JAMISON MACCOUNT: [id number] : 1980 LOCATION: ER AGE: 40 SEX: F EXAM STATUS: REG ER ORD. PHYSICIAN: KIRSTIN ADAMS MD REASON: pain, swelling, no trauma PROCEDURE: WRIST 3V RIGHT EXAM: 3 views of the right wrist DATE: 05/04/2021 8:41 AM INDICATION: Reason: pain, swelling, no trauma / Spl. Instructions: / History: COMPARISON: No Prior FINDINGS: No acute fracture or dislocation. Ulnar minus variance. Right thumb MCP DJD. No significant soft tissue swelling. IMPRESSION: 1. No acute fracture or dislocation. 2. Right thumb MCP DJD Electronically signed by: Gama Crockett MD (05/04/2021 8:55 AM) [id number] DICTATED AND SIGNED BY: GAMA CROCKETT MD DATE: 05/04/21 0854 CC: KIRSTIN ADAMS MD; JAMARI LINDSAY ~[facility] 0 [][place] [id number] IMAGING REPORT Signed PATIENT: MC JAMISON MACCOUNT: [id number] : 1980 LOCATION: ER AGE: 40 SEX: F EXAM STATUS: REG ER ORD. PHYSICIAN: KIRSTIN ADAMS MD REASON: RIGHT FOREARM/WRIST PAIN, UNKNOWN INJURY PROCEDURE: FOREARM RIGHT EXAM: 2 views right forearm DATE: 05/04/2021 8:41 AM INDICATION: Reason: RIGHT FOREARM/WRIST PAIN, UNKNOWN INJURY / Spl. Instructions: / History: . COMPARISON: No Prior FINDINGS/ IMPRESSION: No acute bone or joint abnormality. No evidence of acute fracture or dislocation. Electronically signed by: Gama Crockett MD (05/04/2021 8:57 AM) [id number] DICTATED AND SIGNED BY: GAMA CROCKETT MD DATE: 05/04/21 0856 CC: KIRSTIN ADAMS MD; JAMARI LINDSAY ~MTH0 0 Heart Score: C/O Chest Pain: No Risk Factors: Risk Factors: DM, Current or recent (<one month) smoker, HTN, HLP, family history of CAD, obesity. Risk Scores: Score 0 - 3: 2.5% MACE over next 6 weeks - Discharge Home Score 4 - 6: 20.3% MACE over next 6 weeks - Admit for Clinical Observation Score 7 - 10: 72.7% MACE over next 6 weeks - Early Invasive Strategies Course & Med Decision Making: Course & Med Decision Making Pertinent Labs and Imaging studies reviewed. (See chart for details) No signs of infection or trauma. Patient has brisk cap refill of the pulses. Symptoms favor inflammation from overuse with likely component of her RA. [] Dragon Disclaimer: Dragon Disclaimer: This electronic medical record was generated, in whole or in part, using a voice recognition dictation system. Departure Departure: Impression: Primary Impression: Wrist pain, right Disposition: HOME / SELF CARE / HOMELESS Condition: STABLE Referrals: JAMARI LINDSAY (PCP) Patient Instructions: RICE - Routine Care for Injuries Scripts Tramadol Hcl (TRAMADOL HCL) 50 Mg Tablet 50 MG PO PRN Q6HRS PRN for PAIN for 3 Days, #12 TAB Prov: KIRSTIN ADAMS MD 05/04/21 Methylprednisolone (MEDROL) 4 Mg Tab.ds.pk 1 PKG PO UD for steroid, #1 PKG Prov: KIRSTIN ADAMS MD 05/04/21 KIRSTIN ADAMS MD May 04, 2021 08:40
--- NOTE | 2021-05-04 08:57 | RAD ---
EXAM: 3 views of the right wrist DATE: 05/04/2021 8:41 AM INDICATION: Reason: pain, swelling, no trauma / Spl. Instructions: / History: COMPARISON: No Prior FINDINGS: No acute fracture or dislocation. Ulnar minus variance. Right thumb MCP DJD. No significant soft tiss ue swelling. IMPRESSION: 1. No acute fracture or dislocation. 2. Right thumb MCP DJD Electronically signed by: Gama Washington MD (05/04/2021 8:55 AM) [id number]
[2021-05-04 08:58] LABS: BASO % 1 % (0-3); EOS # 0.2 x10^3/uL (0.0-0.7); EOS % 8 % (0-3); HEMATOCRIT 41.2 % (36.0-47.0); HEMOGLOBIN 13.7 g/dL (12.0-15.5); LYMPH # 0.7 x10^3/uL (1.0-4.8); LYMPH % 21 % (24-48); MEAN CORPUSCULAR HEMOGLOBIN 31 pg (25-35); MEAN CORPUSCULAR HGB CONC 33 g/dL (31-37); MEAN CORPUSCULAR VOLUME 92 fL (79-100); MONO # 0.3 x10^3/uL (0.0-1.1); MONO % 9 % (0-9); NEUT % 62 % (31-73); PLATELET COUNT 245 x10^3/uL (140-400); RED BLOOD COUNT 4.46 x10^6/uL (3.50-5.40); RED CELL DISTRIBUTION WIDTH 13.1 % (11.5-14.5); WHITE BLOOD COUNT 3.2 x10^3/uL (4.0-11.0)
--- NOTE | 2021-05-04 09:00 | RAD ---
EXAM: 2 views right forearm DATE: 05/04/2021 8:41 AM INDICATION: Reason: RIGHT FOREARM/WRIST PAIN, UNKNOWN INJURY / Spl. Instructions: / History: . COMPARISON: No Prior FINDINGS/ IMPRESSION: No acute bone or joint abnormality. No evidence of acute fracture or dislocation. Electronically signed by: Gama Washington MD (05/04/2021 8:57 AM) [id number]
[2021-05-04 09:07] LABS: ANION GAP 4 (6-14); BLOOD UREA NITROGEN 13 mg/dL (7-20); BUN/CREATININE RATIO 22 (6-20); CALCIUM 8.8 mg/dL (8.5-10.1); CARBON DIOXIDE 26 mmol/L (21-32); CHLORIDE 106 mmol/L (98-107); CREATININE 0.6 mg/dL (0.6-1.0); GFR 110.7; GLUCOSE 85 mg/dL (70-99); POTASSIUM 3.7 mmol/L (3.5-5.1); SODIUM 136 mmol/L (136-145)
[2021-05-04 09:13] LABS: ALBUMIN 3.7 g/dL (3.4-5.0); ALBUMIN/GLOBULIN RATIO 1.2 (1.0-1.7); ALK PHOS 61 U/L (46-116); ALT (SGPT) 17 U/L (14-59); AST (SGOT) 19 U/L (15-37); C REACTIVE PROTEIN < 0.5 mg/L (0-3.3); TOTAL BILIRUBIN 0.3 mg/dL (0.2-1.0); TOTAL PROTEIN 6.9 g/dL (6.4-8.2)
[2021-05-04] MEDS ORDERED: METH4TAB2 PO (09:28)
[2021-05-04] MEDS ORDERED: TRAM50TA PO (09:28)
[2021-05-04] MEDS ORDERED: KETOROLAC 30 MG/ML VIAL. ONE (10:12)
[2021-05-04] MEDS ORDERED: KETOROLAC 60 MG/2 ML VIAL. IM ONE (10:15)
== END 2021-05-04 10:20 | disposition home or self-care (01) ==
LOC: ER 07:53
DX: M25.531 Pain in right wrist (principal); M79.601 Pain in right arm; M06.9 Rheumatoid arthritis, unspecified
CPT/HCPCS: 36415; 73090; 73110; 80053; 85025; 86140; 96372; 99284; J1885